=== PATIENT | male | born 1995 | race Two or more races ===

== ENCOUNTER 2019-04-07 05:58 | Emergency (ER) | payer OTHER ==
[2019-04-07 06:58] VITALS: BP 135/94; PULSE 77; TEMP 97.9; BMI 28.6
[2019-04-07] MEDS ORDERED: TETRACAINE 0.5% OPHTH SOLN 2 ML BOTTLE ONE (07:42)
[2019-04-07] MEDS ORDERED: FLUORESCEIN NA 1 EA STRIP ONE (07:42)
--- NOTE | 2019-04-07 08:08 | PDOC ---
History of Present Illness - General Chief Complaint: Eye Problem Stated Complaint: R EYE PAIN Time Seen by Provider: 04/07/19 07:29 History Source: Patient - History of Present Illness Timing/Duration: other Severity: moderate Past History - Past Medical History Allergies/Adverse Reactions: Allergies Allergy/AdvReac Type Severity Reaction Status Date / Time No Known Allergies Allergy Verified 04/07/19 06:59 Home Medications: Ambulatory Orders NK [No Known Home Medication] 04/07/19 - Psycho Social/Smoking Cessation Hx Smoking History: Current some day smoker Have you smoked in the past 12 months: Yes Information on smoking cessation initiated: No Hx Alcohol Use: Yes Drug/Substance Use Hx: No Review of Systems - Review of Systems Constitutional: No: Chills, Fever HEENTM: Yes: Eye Pain, Blurred Vision, Tearing *Physical Exam - Vital Signs Last Vital Signs Temp Pulse Resp BP Pulse Ox 97.9 F 77 15 135/94 98 04/07/19 06:00 04/07/19 06:00 04/07/19 06:00 04/07/19 06:00 04/07/19 06:00 - Physical Exam General Appearance: Yes: Appropriately Dressed, Mild Distress HEENT: positive: Normal Voice, Other (R conjunctival erythema, no discharge, no gross fb on lid eversion, no uptake on slit lamp, VA 20/40 OD/OS/OU) Respiratory/Chest: negative: Respiratory Distress Neurologic: positive: Fully Oriented, Alert, Normal Mood/Affect Medical Decision Making - Medical Decision Making 04/07/19 08:08 24-year-old male, no significant history, here with worsening pain to R eye. Patient states 6 days ago while at work and using a weed carol, a piece of vine hit him in his right eye, adamant that there was no poison faisal. Since then has had intermittent pain to R eye that worsens after waking up from sleep. States had blurry vision initially that has since resolved. + photophobia and tearing. No FB sensation See exam Eye pain 2/2 injury Exam only remarkable for R conjunctival erythema, no gross fb, no uptake, VA intact Pain presently controlled w/ tetracaine, dose of motrin also given Case discussed with Dr. Walsh of ophthalmology who states patient can be seen in clinic today Discharge - Discharge Information Problems reviewed: Yes Clinical Impression/Diagnosis: Eye injury Qualifiers: Encounter type: initial encounter Laterality: right Qualified Code(s): S05.91XA - Unspecified injury of right eye and orbit, initial encounter Eye pain Qualifiers: Laterality: right Qualified Code(s): H57.11 - Ocular pain, right eye Condition: Fair Disposition: HOME - Follow up/Referral - Patient Discharge Instructions Additional Instructions: Please call the eye clinic at [phone] and inform them that you were seen in the ED today and that ED staff spoke to a Dr. Walsh of ophthalmology who wanted you to call clinic today to be seen by an deli bakery clerk. Their address is below: [facility] Address: [address] [place] [address] - Post Discharge Activity Work/Back to School Note: Back to Work
[2019-04-07] MEDS ORDERED: IBUPROFEN 400 MG TABLET (FP) PO ONE ×2 (08:26→08:28)
== END 2019-04-07 08:33 | disposition home or self-care (01) ==
LOC: JER 05:58
DX: S05.91XA Unspecified injury of right eye and orbit, initial encounter (principal); H57.11 Ocular pain, right eye; W20.8XXA Other cause of strike by thrown, projected or falling object, initial encounter; Y93.H2 Activity, gardening and landscaping; Y92.89 Other specified places as the place of occurrence of the external cause; Y99.0 Civilian activity done for income or pay; F17.210 Nicotine dependence, cigarettes, uncomplicated
CPT/HCPCS: 99281-25

== ENCOUNTER 2021-10-29 10:36 | Emergency (ER) | payer OTHER ==
[2021-10-29 10:42] VITALS: BP 135/80; PULSE 84; TEMP 97.9; BMI 28.5
[2021-10-29] MEDS ORDERED: IBUPROFEN 600 MG TABLET (FP) PO ONE ×2 (11:58→11:59)
== END 2021-10-29 12:05 | disposition home or self-care (01) ==
LOC: JERFT 10:36
DX: H60.501 Unspecified acute noninfective otitis externa, right ear (principal)
CPT/HCPCS: 99283-25

== ENCOUNTER 2022-04-10 12:15 | Emergency (ER) | payer OTHER ==
[2022-04-10 12:30] VITALS: BP 137/90; PULSE 90; RESP 19; TEMP 98.2; BMI 29.3
[2022-04-10] MEDS ORDERED: IBUPROFEN 600 MG TABLET (FP) PO ONE (17:19)
== END 2022-04-10 17:37 | disposition home or self-care (01) ==
LOC: JERFT 12:15
DX: M67.823 Other specified disorders of tendon, right elbow (principal)
CPT/HCPCS: 71046-TC-FY; 73030-TC-RT-FY; 73070-TC-RT-FY; 93971; 99284-25

== ENCOUNTER 2022-04-11 23:18 | Emergency (ER) | payer OTHER ==
[2022-04-11 23:32] VITALS: BP 117/75; PULSE 88; RESP 17; TEMP 98.1; BMI 29.8
[2022-04-11] MEDS ORDERED: DIPHTH,PERTUSS(ACELL),TET 0.5 ML DISP.SYRIN IM ONE (23:50)
[2022-04-12] MEDS ORDERED: DIPHTH,PERTUSS(ACELL),TET 0.5 ML DISP.SYRIN IM ONE (00:35)
== END 2022-04-12 02:05 | disposition home or self-care (01) ==
LOC: JER 23:18
PROC: 0HQFXZZ Repair Right Hand Skin, External Approach (ICD-10-PCS; principal; 2022-04-11)
PROC: 3E0234Z Introduction of Serum, Toxoid and Vaccine into Muscle, Percutaneous Approach (ICD-10-PCS; 2022-04-11)
DX: S61.216A Laceration without foreign body of right little finger without damage to nail, initial encounter (principal); W25.XXXA Contact with sharp glass, initial encounter
CPT/HCPCS: 12002-25; 73140-TC-RT-FY; 90471; 90715; 99283-25

== ENCOUNTER 2022-04-24 21:26 | Emergency (ER) | payer OTHER ==
[2022-04-24 21:35] VITALS: BP 123/84; PULSE 89; RESP 17; TEMP 97.6; BMI 30.2
== END 2022-04-24 23:16 | disposition home or self-care (01) ==
LOC: JERFT 21:26 → JER 21:26 → JERFT 23:16
DX: Z48.02 Encounter for removal of sutures (principal)
CPT/HCPCS: 99281-25

== ENCOUNTER 2022-10-27 23:20 | Emergency (ER) | payer OTHER ==
[2022-10-27 23:26] VITALS: BP 131/80; PULSE 93; RESP 20; TEMP 97.4; BMI 29.0
[2022-10-28] MEDS ORDERED: IBUPROFEN 600 MG TABLET (FP) PO ONE ×2 (00:57→00:59)
== END 2022-10-28 03:21 | disposition home or self-care (01) ==
LOC: JER 23:20
DX: M25.512 Pain in left shoulder (principal); M79.602 Pain in left arm; V49.40XA Driver injured in collision with unspecified motor vehicles in traffic accident, initial encounter
CPT/HCPCS: 71046-TC-FY; 99283-25

== ENCOUNTER 2023-12-09 21:56 | Emergency (ER) | payer OTHER ==
[2023-12-09 22:01] VITALS: BP 152/88; PULSE 87; RESP 18; TEMP 98.5; BMI 27.6
[2023-12-09 23:13] LABS: EPI CELLS 7 /uL (0-25.1); HYALINE CASTS 1 /uL (0-3.1); PH,URINE 6.5 (5.0-8.0); URINE APPEARANCE CLOUDY; URINE BACTERIA 93 /uL (0-1359); URINE BILIRUBIN NEGATIVE (NEGATIVE); URINE COLOR YELLOW; URINE GLUCOSE (UA) NEGATIVE (NEGATIVE); URINE KETONE NEGATIVE (NEGATIVE); URINE LEUK ESTERASE 3+ (NEGATIVE); URINE NITRITE NEGATIVE (NEGATIVE); URINE PROTEIN TRACE (NEGATIVE); URINE RBC 40 /uL (0-23.9); URINE WBC 2592 /uL (0-25.8)
[2023-12-10] MEDS ORDERED: SULFAMETHOXAZOLE/TRIMETHOPRIM 800MG/160MG D.S. TABLET ONE (00:46)
[2023-12-10] MEDS: SULFAMETHOXAZOLE/TRIMETHOPRIM 800MG/160MG D.S. TABLET PO ONE (00:50)
== END 2023-12-10 00:51 | disposition home or self-care (01) ==
LOC: JER 21:56
DX: N50.811 Right testicular pain (principal); N45.2 Orchitis
CPT/HCPCS: 36415; 76870-TC; 81003; 87086; 87491; 87591; 99284-25

== ENCOUNTER 2023-12-25 11:08 | Emergency (ER) | payer OTHER ==
[2023-12-25 11:18] VITALS: BMI 27.3
[2023-12-25] MEDS ORDERED: ACETAMINOPHEN 500 MG TABLET (FP) ONE (12:09)
[2023-12-25] MEDS: ACETAMINOPHEN 500 MG TABLET (FP) PO ONE (12:20)
[2023-12-25 12:29] LABS: BASO % 0.3 % (0-2.0); EOS % 0.2 % (0-4.5); HEMATOCRIT 45.4 % (35.4-49); HEMOGLOBIN 15.5 GM/dL (11.7-16.9); MCH 30.8 pg (25.7-33.7); MCHC 34.2 g/dl (32.0-35.9); NEUT % 85.5 % (42.8-82.8); PLATELET COUNT 389 10^3/uL (134-434); RBC 5.05 M/mm3 (4.00-5.60); RDW 13.6 % (11.9-15.9); WHITE BLOOD COUNT 15.8 K/mm3 (4.0-10.0)
[2023-12-25 12:37] LABS: INR 0.93 (0.83-1.09); PROTHROMBIN TIME (PATIENT) 10.5 SEC (9.7-13.0)
[2023-12-25 12:39] LABS: ACTIVATED PTT 32.9 SECONDS (25.2-36.5)
[2023-12-25 12:47] LABS: POTASSIUM 4.8 mmol/L (3.5-5.1)
[2023-12-25 12:48] LABS: ALBUMIN 4.1 g/dl (3.4-5.0); CALCIUM 9.5 mg/dL (8.5-10.1)
[2023-12-25 12:51] LABS: CREATININE 0.8 mg/dL (0.55-1.3)
[2023-12-25 12:53] LABS: BILIRUBIN,TOTAL 0.3 mg/dL (0.2-1); TOT PROT 7.8 g/dl (6.4-8.2)
[2023-12-25 12:55] LABS: URINE APPEARANCE CLEAR; URINE BILIRUBIN NEGATIVE (NEGATIVE); URINE COLOR YELLOW; URINE GLUCOSE (UA) NEGATIVE (NEGATIVE); URINE KETONE NEGATIVE (NEGATIVE); URINE LEUK ESTERASE NEGATIVE (NEGATIVE); URINE NITRITE NEGATIVE (NEGATIVE); URINE PROTEIN NEGATIVE (NEGATIVE); URINE UROBILINOGEN 0.2 mg/dL (0.2-1.0)
[2023-12-25 17:37] VITALS: BP 122/78; PULSE 78; RESP 19; TEMP 97.9
== END 2023-12-25 17:37 | disposition home or self-care (01) ==
LOC: JER 11:08
DX: R10.31 Right lower quadrant pain (principal)
CPT/HCPCS: 36415; 74177-TC; 80053; 81003; 85025; 85610; 85730; 86850; 86900; 86901; 87086; 93005; 93010; 99285-25; Q9967